=== PATIENT | male | born 1995 | race Caucasian/White ===

== ENCOUNTER 2019-07-30 04:26 | Emergency (ER) | payer OTHER ==
[~2019-07-30] VITALS: Ht 172.7 cm; Wt 80.6 kg
[2019-07-30 04:31] VITALS: BP 118/70
--- NOTE | 2019-07-30 04:47 | NUR ---
PT PRESENTED WITH C/O FEVER AND BODY ACHES WITH COUGH X PAST 2 DAYS. PT RESTING ON GURNEY, CALL LIGHT WITHIN REACH.
[2019-07-30] MEDS ORDERED: KETOROLAC 30 MG/1 ML ONE (04:57)
[2019-07-30] MEDS ORDERED: KETOROLAC 30 MG/1 ML IM ONE (05:00)
--- NOTE | 2019-07-30 05:00 | NUR ---
pt medicated per mar
[2019-07-30 05:33] LABS: RAPID INFLUENZA A Negative (Negative); RAPID INFLUENZA B POSITIVE (Negative)
== END 2019-07-30 06:18 | disposition home or self-care (01) ==
LOC: ED 06:00
DX: J10.1 Influenza due to other identified influenza virus with other respiratory manifestations (principal); H66.92 Otitis media, unspecified, left ear; F17.200 Nicotine dependence, unspecified, uncomplicated
CPT/HCPCS: 71046; 87400; 96372; 99284; J1885